=== PATIENT | female | born 1990 | race Caucasian/White ===

== ENCOUNTER 2021-01-27 14:14 | Emergency (ER) | payer OTHER ==
[~2021-01-27] VITALS: Ht 170.2 cm; Wt 78.9 kg
[2021-01-27 14:18] VITALS: BP 119/56
== END 2021-01-27 17:11 | disposition home or self-care (01) ==
LOC: ER 14:16
DX: S06.0X9A Concussion with loss of consciousness of unspecified duration, initial encounter (principal); V86.56XA Driver of dirt bike or motor/cross bike injured in nontraffic accident, initial encounter; Y93.89 Activity, other specified; Y92.89 Other specified places as the place of occurrence of the external cause; Y99.8 Other external cause status
CPT/HCPCS: 70450; 73502